=== PATIENT | male | born 1975 | race Caucasian/White ===

== ENCOUNTER 2018-08-02 22:27 | Emergency (ER) | payer BC, OTHER ==
[~2018-08-02] VITALS: Ht 175.3 cm; Wt 85.0 kg
--- NOTE | 2018-08-02 22:30 | ED.ADGEN ---
Past History Past Medical History: Anxiety, GERD Past Surgical History: No Surgical History Alcohol Use: None Drug Use: None Adult General Chief Complaint Chief Complaint ".. I ve got a dry mouth.. and urinating a lot... I am worried I may have diabetes.. it runs in my family..." HPI HPI Patient is a 43 year old male who presents with above hx and complaints of frequent urination. Pt. has family hx of diabetes and concern he has developed it. Pt. Denies any risks for STD. No hx of dysuria. No problems with starting or stopping his urine stream. Patient does have a history of anxiety. Patient was seen in March 22 and was transferred for acute appendicitis. She denies any changes in stools. Patient denies any abdomen pain. Patient denies any intake of diuretics or heavy caffeine use. Review of Systems Review of Systems Constitutional: Denies fever or chills [] Eyes: Denies change in visual acuity, redness, or eye pain [] HENT: Denies nasal congestion or sore throat [] Respiratory: Denies cough or shortness of breath [] Cardiovascular: No additional information not addressed in HPI [] GI: Denies abdominal pain, nausea, vomiting, bloody stools or diarrhea [] : Denies dysuria or hematuria [] Musculoskeletal: Denies back pain or joint pain [] Integument: Denies rash or skin lesions [] Neurologic: Denies headache, focal weakness or sensory changes [] Endocrine: Hx. polyuria or polydipsia [] All other systems were reviewed and found to be within normal limits, except as documented in this note. Family History Family History Diabetes Current Medications Current Medications See nursing for home meds Allergies Allergies Allergies Coded Allergies Type Severity Reaction Last Updated Verified levofloxacin Allergy Unknown 03/22/18 Yes moxifloxacin Allergy Unknown 03/22/18 Yes Physical Exam Physical Exam Constitutional: Well developed, well nourished, no acute distress, non-toxic appearance. [] HENT: Normocephalic, atraumatic, bilateral external ears normal, oropharynx moist, no oral exudates, nose normal. [] Eyes: PERRLA, EOMI, conjunctiva normal, no discharge. [] Neck: Normal range of motion, no tenderness, supple, no stridor. [] Cardiovascular:Heart rate regular rhythm, no murmur [] Lungs & Thorax: Bilateral breath sounds clear to auscultation [] Abdomen: Bowel sounds normal, soft, no tenderness, no masses, no pulsatile masses. [] Old surgical scars. Skin: Warm, dry, no erythema, no rash. [] Back: No tenderness, no CVA tenderness. [] Extremities: No tenderness, no cyanosis, no clubbing, ROM intact, no edema. [] Neurologic: Alert and oriented X 3, normal motor function, normal sensory function, no focal deficits noted. [] Psychologic: Affect anxious, judgement normal, mood normal. [] Current Patient Data Vital Signs Vital Signs Date Time Temp Pulse Resp B/P (MAP) Pulse Ox O2 Delivery O2 Flow Rate FiO2 08/02/18 23:40 64 18 151/75 (100) 98 08/02/18 22:27 98.3 Room Air Lab Results Laboratory Tests Test 08/02/18 22:45 08/02/18 22:55 Urine Collection Type Unknown Urine Color Yellow Urine Clarity Clear Urine pH 7.0 Urine Specific [place] 1.015 Urine Protein Neg (NEG-TRACE) Urine Glucose (UA) Neg mg/dL (NEG) Urine Ketones (Stick) Neg mg/dL (NEG) Urine Blood Neg (NEG) Urine Nitrite Neg (NEG) Urine Bilirubin Neg (NEG) Urine Urobilinogen Dipstick 0.2 mg/dL (0.2 mg/dL) Urine Leukocyte Esterase Neg (NEG) Urine RBC Rare /HPF (0-2) Urine WBC 0 /HPF (0-4) Urine Squamous Epithelial Cells Occ /LPF Urine Bacteria 0 /HPF (0-FEW) Urine Opiates Screen Neg (NEG) Urine Methadone Screen Neg (NEG) Urine Barbiturates Neg (NEG) Urine Phencyclidine Screen Neg (NEG) Urine Amphetamine/Methamphetamine Neg (NEG) Urine Benzodiazepines Screen Neg (NEG) Urine Cocaine Screen Neg (NEG) Urine Cannabinoids Screen Neg (NEG) Urine Ethyl Alcohol Neg (NEG) Glucose (Fingerstick) 83 mg/dL (70-99) EKG EKG [] Radiology/Procedures Radiology/Procedures [] Course & Med Decision Making Course & Med Decision Making Pertinent Labs and Imaging studies reviewed. (See chart for details) Patient continue push fluids. Avoid caffeine products. Follow-up primary care. Return if any concerns. [] Final Impression Final Impression 1. History of frequent urination[] Dragon Disclaimer Dragon Disclaimer This electronic medical record was generated, in whole or in part, using a voice recognition dictation system. Dragon Disclaimer This chart was dictated in whole or in part using Voice Recognition software in a busy, high-work load, and often noisy Emergency Department environment. It may contain unintended and wholly unrecognized errors or omissions. Discharge Summary Visit Information Final Diagnosis Problems Medical Problems: (1) Frequent urination Status: Acute Brief Hospital Course Allergies Allergies Coded Allergies Type Severity Reaction Last Updated Verified levofloxacin Allergy Unknown 03/22/18 Yes moxifloxacin Allergy Unknown 03/22/18 Yes Vital Signs Vital Signs Date Time Temp Pulse Resp B/P (MAP) Pulse Ox O2 Delivery O2 Flow Rate FiO2 08/02/18 23:40 64 18 151/75 (100) 98 08/02/18 22:27 98.3 Room Air Lab Results Laboratory Tests Test 08/02/18 22:45 08/02/18 22:55 Urine Collection Type Unknown Urine Color Yellow Urine Clarity Clear Urine pH 7.0 Urine Specific [place] 1.015 Urine Protein Neg (NEG-TRACE) Urine Glucose (UA) Neg mg/dL (NEG) Urine Ketones (Stick) Neg mg/dL (NEG) Urine Blood Neg (NEG) Urine Nitrite Neg (NEG) Urine Bilirubin Neg (NEG) Urine Urobilinogen Dipstick 0.2 mg/dL (0.2 mg/dL) Urine Leukocyte Esterase Neg (NEG) Urine RBC Rare /HPF (0-2) Urine WBC 0 /HPF (0-4) Urine Squamous Epithelial Cells Occ /LPF Urine Bacteria 0 /HPF (0-FEW) Urine Opiates Screen Neg (NEG) Urine Methadone Screen Neg (NEG) Urine Barbiturates Neg (NEG) Urine Phencyclidine Screen Neg (NEG) Urine Amphetamine/Methamphetamine Neg (NEG) Urine Benzodiazepines Screen Neg (NEG) Urine Cocaine Screen Neg (NEG) Urine Cannabinoids Screen Neg (NEG) Urine Ethyl Alcohol Neg (NEG) Glucose (Fingerstick) 83 mg/dL (70-99) Brief Hospital Course Mr. Pérez is a 43 old male who presented with hx of frequent urination. Fears of DM. Glucose nl and no UTI noted. Pt. to follow up with primary. Discharge Information Condition at Discharge: Stable Disposition/Orders: D/C to Home FRANKO PARKS MD Aug 02, 2018 22:30
[2018-08-02 23:13] LABS: BARBITURATES NEG (NEG); BENZODIAZEPINES NEG (NEG); CANNABINOIDS NEG (NEG); COCAINE NEG (NEG); METHADONE NEG (NEG); OPIATES NEG (NEG); PHENCYCLIDINE NEG (NEG)
[2018-08-02 23:15] LABS: AMPHETAMINE/METHAMPHETAMINE NEG (NEG)
[2018-08-02 23:22] LABS: BACTERIA,URINE 0 /HPF (0-FEW); BILIRUBIN,URINE NEG (NEG); CLARITY,URINE CLEAR; COLOR,URINE YELLOW; GLUCOSE,URINE NEG (NEG); NITRITE,URINE NEG (NEG); RBC,URINE RARE /HPF (0-2); SQUAMOUS EPITHELIAL CELL,UR OCC /LPF; UROBILINOGEN,URINE 0.2 mg/dL (0.2 mg/dL); WBC,URINE 0 /HPF (0-4)
[2018-08-02 23:40] VITALS: BP 151/75
== END 2018-08-02 23:40 | disposition home or self-care (01) ==
LOC: ER 22:27
DX: R35.0 Frequency of micturition (principal); F41.9 Anxiety disorder, unspecified; K21.9 Gastro-esophageal reflux disease without esophagitis; Z88.1 Allergy status to other antibiotic agents
CPT/HCPCS: 36415; 80307; 81001; 82947; 99283

== ENCOUNTER 2019-02-03 09:56 | Emergency (ER) | payer BC ==
[~2019-02-03] VITALS: Ht 175.3 cm; Wt 78.6 kg
--- NOTE | 2019-02-03 10:27 | RAD ---
Chest radiograph 02/03/2019 10:03 AM INDICATION: Chest pain COMPARISON: None available TECHNIQUE: Frontal view of the chest is provided. FINDINGS: The cardiomediastinal silhouette is within normal limits. There are no pleural effusions. There is no pulmonary vascular congestion. There is no pneumothorax. The lungs are clear. No significant osseous abnormality is identified. IMPRESSION: No acute cardiopulmonary process. Electronically signed by: Christy Parker MD (02/03/2019 10:24 AM) [id number]
[2019-02-03] MEDS ORDERED: ASPIRIN 81 MG TAB.CHEW PO ONE (10:30)
--- NOTE | 2019-02-03 10:32 | PHYS DOC ---
Past History Past Medical History: Anxiety, GERD, Other Past Surgical History: Appendectomy Additional Smoking Information: currently chews tobacco Alcohol Use: None Drug Use: None Adult General Chief Complaint Chief Complaint: CHEST PAIN HPI HPI 43-year-old male presents with chest pain. The patient was driving to work this morning when he began have some left shoulder pain that radiated over into his chest. He describes it as a modest pressure feeling. It was then followed by a full chest maguire of warmth and tingling into his arms. He thought this might be anxiety so he took a half a milligram of Xanax. The patient does have a history of mild anxiety. The medication did not seem to help and the feeling was still quite significant. He felt a bit short of breath. He pulled into a local police station and requested an ambulance. While he was being moved to the [facility], he had an intense dizziness. On arrival to the ED, his symptoms have improved. He does not have any chest pain at this time. He does not have dizziness. His own conclusion is this could be anxiety. He has not had this intense of symptoms before. Patient has had a cardiac catheter several years ago that was clean. No recent cardiac workup. He's never had any cardiac diagnosis. He denies fever or chills. Review of Systems Review of Systems Constitutional: Denies fever or chills [] Eyes: Denies change in visual acuity, redness, or eye pain [] HENT: Denies nasal congestion or sore throat [] Respiratory: Denies cough or shortness of breath [] Cardiovascular: No additional information not addressed in HPI [] GI: Denies abdominal pain, nausea, vomiting, bloody stools or diarrhea [] : Denies dysuria or hematuria [] Musculoskeletal: Denies back pain or joint pain [] Integument: Denies rash or skin lesions [] Neurologic: Denies headache, focal weakness or sensory changes [] Endocrine: Denies polyuria or polydipsia [] All other systems were reviewed and found to be within normal limits, except as documented in this note. Current Medications Current Medications Current Medications Medications (Trade) Dose Ordered Sig/Aftab Start Time Stop Time Status Last Admin Dose Admin Aspirin (Children'S Aspirin) 324 mg 1X ONCE 02/03/19 10:30 02/03/19 10:31 Allergies Allergies Allergies Coded Allergies Type Severity Reaction Last Updated Verified levofloxacin Allergy Unknown 02/03/19 Yes moxifloxacin Allergy Unknown 02/03/19 Yes Physical Exam Physical Exam Constitutional: Well developed, well nourished, no acute distress, non-toxic appearance. [] HENT: Normocephalic, atraumatic, bilateral external ears normal, oropharynx moist, no oral exudates, nose normal. [] Eyes: PERRLA, EOMI, conjunctiva normal, no discharge. [] Neck: Normal range of motion, no tenderness, supple, no stridor. [] Cardiovascular:Heart rate regular rhythm, no murmur [] Lungs & Thorax: Bilateral breath sounds clear to auscultation [] Abdomen: Bowel sounds normal, soft, no tenderness, no masses, no pulsatile masses. [] Skin: Warm, dry, no erythema, no rash. [] Back: No tenderness, no CVA tenderness. [] Extremities: No tenderness, no cyanosis, no clubbing, ROM intact, no edema. [] Neurologic: Alert and oriented X 3, normal motor function, normal sensory function, no focal deficits noted. [] Psychologic: Affect normal, judgement normal, mood normal. [] Current Patient Data Vital Signs Vital Signs Date Time Temp Pulse Resp B/P (MAP) Pulse Ox O2 Delivery O2 Flow Rate FiO2 02/03/19 10:03 97.8 77 13 98 Room Air EKG EKG Sinus rhythm, rate 84, normal axis, no ST elevations or depressions.[] Radiology/Procedures Radiology/Procedures [] Impressions: Chest radiograph 02/03/2019 10:03 AM INDICATION: Chest pain COMPARISON: None available TECHNIQUE: Frontal view of the chest is provided. FINDINGS: The cardiomediastinal silhouette is within normal limits. There are no pleural effusions. There is no pulmonary vascular congestion. There is no pneumothorax. The lungs are clear. No significant osseous abnormality is identified. IMPRESSION: No acute cardiopulmonary process. Electronically signed by: Claudia Gray MD (02/03/2019 10:24 AM) [id number] DICTATED AND SIGNED BY: CLAUDIA GRAY MD DATE: 02/03/19 1024 CC: MELY EVERETT DO; TREVER KHAN MD ~ Course & Med Decision Making Course & Med Decision Making Pertinent Labs and Imaging studies reviewed. (See chart for details) The patient's EKG is unremarkable. His chest x-ray is unremarkable. Troponin is negative. His heart score is 2. The patient's symptoms sound like exacerbation of his anxiety. It has resolved in less than an hour. He's had no further symptoms in the ED. The patient is stable for discharge at this time. If his symptoms return or any new symptoms develop, he will return to the emergency room. [] Dragon Disclaimer Dragon Disclaimer This electronic medical record was generated, in whole or in part, using a voice recognition dictation system. Departure Departure: Impression: Primary Impression: Chest pain Additional Impression: Anxiety Disposition: HOME, SELF-CARE Condition: STABLE Referrals: TREVER KHAN MD (PCP) Patient Instructions: Anxiety and Panic Attacks, [id number], Chest Pain (Nonspecific), [id number] Problem Qualifiers Primary Impression: Chest pain Chest pain type: other chest pain Qualified Codes: R07.89 - Other chest pain MELY EVERETT DO Feb 03, 2019 10:32
[2019-02-03 10:45] VITALS: BP 102/59
[2019-02-03 10:45] LABS: BASO % 1 % (0-3); EOS % 1 % (0-3); HEMATOCRIT 41.1 % (39.0-53.0); HEMOGLOBIN 13.7 g/dL (13.0-17.5); LYMPH # 1.9 x10^3/uL (1.0-4.8); LYMPH % 42 % (24-48); MEAN CORPUSCULAR HEMOGLOBIN 29 pg (25-35); MEAN CORPUSCULAR HGB CONC 33 g/dL (31-37); MEAN CORPUSCULAR VOLUME 87 fL (79-100); MONO # 0.4 x10^3/uL (0.0-1.1); MONO % 9 % (0-9); NEUT # 2.1 x10^3uL (1.8-7.7); NEUT % 48 % (31-73); PLATELET COUNT 232 x10^3/uL (140-400); RED BLOOD COUNT 4.72 x10^6/uL (4.30-5.70); RED CELL DISTRIBUTION WIDTH 13.5 % (11.5-14.5); WHITE BLOOD COUNT 4.4 x10^3/uL (4.0-11.0)
[2019-02-03 10:55] LABS: ALBUMIN 3.5 g/dL (3.4-5.0); CALCIUM 8.8 mg/dL (8.5-10.1); CREATININE 0.9 mg/dL (0.7-1.3); GFR 91.3; POTASSIUM 3.7 mmol/L (3.5-5.1); TOTAL BILIRUBIN 0.8 mg/dL (0.2-1.0)
--- NOTE | 2019-02-04 11:04 | EKG ---
[address] [address] Test Date: 2019-02-03 Test Time: 10:01:45 Pat Name: MALLIKA DEL ROSARIO Department: Room: Gender: M Credit Risk Manager: : 1975 Requested By: MELY EVERETT Order Number: [id number] Reading MD: Measurements Intervals [place] Rate: 84 P: 12 UT: 156 QRS: 12 QRSD: 86 T: 57 QT: 372 QTc: 443 Interpretive Statements SINUS RHYTHM R-S TRANSITION ZONE IN V LEADS DISPLACED TO THE RIGHT OTHERWISE NORMAL ECG RI6.01 No previous ECG available for comparison
== END 2019-02-03 11:21 | disposition home or self-care (01) ==
LOC: ER 09:56
DX: R07.89 Other chest pain (principal); F41.9 Anxiety disorder, unspecified; K21.9 Gastro-esophageal reflux disease without esophagitis; F17.220 Nicotine dependence, chewing tobacco, uncomplicated; Z88.1 Allergy status to other antibiotic agents
CPT/HCPCS: 36415; 71045; 80053; 84484; 85025; 93005; 99285

== ENCOUNTER 2021-10-05 01:13 | Emergency (ER) | payer BC, OTHER ==
[~2021-10-05] VITALS: Ht 175.3 cm; Wt 89.0 kg
[2021-10-05 01:32] VITALS: BP 152/92
--- NOTE | 2021-10-05 01:43 | PHYS DOC ---
Past History Past Medical History: Anxiety, GERD, Other Past Surgical History: Appendectomy Alcohol Use: None Drug Use: None General Adult EDM: Chief Complaint: EARACHE/EAR PAIN HPI: HPI: ".. I got severe pain in my Rt. ear.. and now it is bleeding..." Patient is a 46 year old male who presents with above hx and complaints of Rt e ar pain with bleeding. Patient has apparent ruptured right TM. There is + blood coming from the ear. No history immunosuppression. No history of trauma. No history of travel. No history of ill contacts. Review of Systems: Review of Systems: Constitutional: Denies fever or chills Eyes: Denies change in visual acuity HENT: Complains of nasal congestion pain in right ear and now bleeding in right ear Respiratory: Denies cough or shortness of breath Cardiovascular: Denies chest pain or edema GI: Denies abdominal pain, nausea, vomiting, bloody stools or diarrhea : Denies dysuria Musculoskeletal: Denies back pain or joint pain Integument: Denies rash Neurologic: Denies headache, focal weakness or sensory changes Endocrine: Denies polyuria or polydipsia Lymphatic: Denies swollen glands Psychiatric: Denies depression or anxiety Family History: Family History: Noncontributory to presentation Current Medications: Current Meds: See nursing for home meds Allergies: Allergies: Allergies Coded Allergies Type Severity Reaction Last Updated Verified levofloxacin Allergy Unknown 02/03/19 Yes moxifloxacin Allergy Unknown 02/03/19 Yes Physical Exam: PE: Constitutional: Well developed, well nourished, in acute distress, non-toxic appearance. [] HENT: Normocephalic, atraumatic, right ear has a perforated eardrum with pus and blood coming from ruptured TM, oropharynx moist, no oral exudates, nose swollen turbinates clear rhinorrhea Eyes: PERRLA, EOMI, conjunctiva normal, no discharge. [] Neck: Normal range of motion, no tenderness, supple, no stridor. [] Cardiovascular:Heart rate regular rhythm, no murmur [] Lungs & Thorax: Bilateral breath sounds clear to auscultation [] Abdomen: Bowel sounds normal, soft, no tenderness, no masses, no pulsatile masses. [] Skin: Warm, dry, no erythema, no rash. [] Back: No tenderness, no CVA tenderness. [] Extremities: No tenderness, no cyanosis, no clubbing, ROM intact, no edema. [] Neurologic: Alert and oriented X 3, normal motor function, normal sensory function, no focal deficits noted. [] Psychologic: Affect anxious, judgement normal, mood normal. [] Current Patient Data: Vital Signs: Vital Signs Date Time Temp Pulse Resp B/P (MAP) Pulse Ox O2 Delivery O2 Flow Rate FiO2 10/05/21 01:32 97.9 80 20 152/92 (112) 99 Room Air EKG: EKG: [] Radiology/Procedures: Radiology/Procedures: [] Heart Score: C/O Chest Pain: N/A Risk Factors: Risk Factors: DM, Current or recent (<one month) smoker, HTN, HLP, family history of CAD, obesity. Risk Scores: Score 0 - 3: 2.5% MACE over next 6 weeks - Discharge Home Score 4 - 6: 20.3% MACE over next 6 weeks - Admit for Clinical Observation Score 7 - 10: 72.7% MACE over next 6 weeks - Early Invasive Strategies Course & Med Decision Making: Course & Med Decision Making Pertinent Labs and Imaging studies reviewed. (See chart for details) Patient take Tylenol and ibuprofen for pain. Patient take Benadryl 25 to 50 mg 4 times a day for fluid behind TM. Use Cortisporin eardrops 2 drops right ear 4 times a day. Take Keflex 500 mg 3 times a day. Follow-up primary care. Have a TM rechecked to make sure perforation is healed. Impression: 1. Right otitis media with TM rupture [] Dragon Disclaimer: Draginés Disclaimer: This electronic medical record was generated, in whole or in part, using a voice recognition dictation system. Departure Departure: Referrals: GEENA JOHNSON MD (PCP) Scripts Cephalexin (KEFLEX) 500 Mg Capsule 500 MG PO TID for Ottis for 7 Days, #21 CAP Prov: FRANKO PARKS MD 10/05/21 Margarita Disclaimer This chart was dictated in whole or in part using Voice Recognition software in a busy, high-work load, and often noisy Emergency Department environment. It may contain unintended and wholly unrecognized errors or omissions. FRANKO PARKS MD Oct 05, 2021 01:43
[2021-10-05] MEDS: CEPHALEXIN 250 MG CAPSULE PO ONE (02:00)
[2021-10-05] MEDS: KETOROLAC 60 MG/2 ML VIAL. IM ONE (02:00)
[2021-10-05] MEDS: oxyCODONE/APAP 5/325 1 TAB TABLET PO ONE (02:00)
[2021-10-05] MEDS: NEOMYCIN/POLYMYXIN/HC OTIC SUSPENSION 10ML BOTTLE. AD ONE (02:00)
[2021-10-05] MEDS ORDERED: CEPH500C PO (02:02)
== END 2021-10-05 02:22 | disposition home or self-care (01) ==
LOC: ER 01:13
DX: H66.91 Otitis media, unspecified, right ear (principal); H72.91 Unspecified perforation of tympanic membrane, right ear; F41.9 Anxiety disorder, unspecified; K21.9 Gastro-esophageal reflux disease without esophagitis; Z88.1 Allergy status to other antibiotic agents
CPT/HCPCS: 96372; 99284; J1885